=== PATIENT | female | born 1975 | race Caucasian/White ===

== ENCOUNTER 2019-01-29 23:45 | Inpatient (IN) | payer OTHER ==
[2019-01-30] MEDS ORDERED: ACETAMINOPHEN 325 MG TAB PO (02:00)
[2019-01-30] MEDS ORDERED: ONDANSETRON 4 MG INJ IV (02:00)
[2019-01-30] MEDS ORDERED: DEXTROSE 50% 50 ML SYRINGE IV ×2 (03:00)
[2019-01-30] MEDS ORDERED: GLUCOSE GEL 15 GRAM TUBE BUCCAL (03:00)
[2019-01-30] MEDS ORDERED: GLUCOSE GEL 15 GRAM TUBE PO ×2 (03:00)
[2019-01-30] MEDS ORDERED: GLUCAGON 1 MG INJ IM (03:00)
[2019-01-30] MEDS: ACCU-CHEK XX (03:30)
[2019-01-30 03:44] LABS: ANION GAP 7 (5-13); BLOOD UREA NITROGEN 12 mg/dl (7-20); CALCIUM 8.9 mg/dl (8.4-10.2); CARBON DIOXIDE 25 mmol/L (21-31); CHLORIDE 107 mmol/L (97-110); CREATININE 0.47 mg/dl (0.44-1.00); Estimated GFR > 60 mL/min (>60); GLUCOSE 161 mg/dl (70-220); POTASSIUM 4.1 mmol/L (3.5-5.1); SODIUM 139 mmol/L (135-144)
[2019-01-30 03:55] LABS: TROPONIN-I < 0.012 ng/ml (0.000-0.120)
[2019-01-30 05:52] LABS: ADD MAN DIFF? NO
[2019-01-30] MEDS: PANTOPRAZOLE (EC) 40 MG TAB PO (05:52)
[2019-01-30 05:55] LABS: WHITE BLOOD COUNT 8.7 10^3/ul (4.8-10.8)
[2019-01-30 05:55] LABS: BASOPHILS % 0.5 % (0.0-2.0); HEMATOCRIT 39.9 % (37.0-47.0); HEMOGLOBIN 13.1 g/dl (12.0-16.0); LYMPHOCYTES # 2.9 10^3/ul (0.8-2.9); LYMPHOCYTES % 33.5 % (15.0-51.0); MEAN CORPUSCULAR HEMOGLOBIN 28.5 pg (29.0-33.0); MEAN CORPUSCULAR HGB CONC 32.8 g/dl (32.0-37.0); MEAN CORPUSCULAR VOLUME 86.9 fl (82.0-101.0); MEAN PLATELET VOLUME 9.7 fl (7.4-10.4); MONOCYTE # 0.6 10^3/ul (0.3-0.9); MONOCYTES % 6.5 % (0.0-11.0); NEUTROPHIL # 5.1 10^3/ul (1.6-7.5); NEUTROPHILS % 59.2 % (39.0-77.0); PLATELET COUNT 275 10^3/UL (140-415); RED BLOOD COUNT 4.59 10^6/ul (4.20-5.40); RED CELL DISTRIBUTION WIDTH 13.1 % (11.5-14.5)
[2019-01-30] MEDS: CHOLECALCIFEROL 1,000 UNIT TAB PO (08:14)
[2019-01-30] MEDS: BENAZEPRIL 40 MG TAB PO (08:14)
[2019-01-30] MEDS: ASPIRIN 81 MG TAB PO (08:14)
[2019-01-30] MEDS: INSULIN ASPART [NOVOLOG] 3 ML PEN SC ×4 (08:41→21:00)
[2019-01-30 10:36] LABS: TROPONIN-I < 0.012 ng/ml (0.000-0.120)
[2019-01-30] MEDS ORDERED: NITROGLYCERIN (SL) 0.4 MG TAB SL (14:30)
[2019-01-30 15:33] LABS: D-DIMER 461.39 ng/ml (<460)
[2019-01-30 15:45] LABS: TROPONIN-I < 0.012 ng/ml (0.000-0.120)
[2019-01-30] MEDS: ATORVASTATIN 40 MG TAB PO (22:12)
[2019-01-31] MEDS: ACCU-CHEK XX (02:00)
[2019-01-31] MEDS: PANTOPRAZOLE (EC) 40 MG TAB PO (06:23)
[2019-01-31] MEDS: BENAZEPRIL 40 MG TAB PO (08:17)
[2019-01-31] MEDS: ASPIRIN 81 MG TAB PO (08:17)
[2019-01-31] MEDS: CHOLECALCIFEROL 1,000 UNIT TAB PO (08:17)
[2019-01-31] MEDS: INSULIN ASPART [NOVOLOG] 3 ML PEN SC ×4 (08:21→21:00)
[2019-01-31] MEDS: REGADENOSON 0.4 MG/5 ML SYG (12:07)
[2019-01-31] MEDS: ATORVASTATIN 40 MG TAB PO (21:50)
[2019-02-01] MEDS: ACCU-CHEK XX (02:00)
[2019-02-01] MEDS: PANTOPRAZOLE (EC) 40 MG TAB PO (06:14)
[2019-02-01] MEDS: BENAZEPRIL 40 MG TAB PO (08:13)
[2019-02-01] MEDS: ASPIRIN 81 MG TAB PO (08:13)
[2019-02-01] MEDS: CHOLECALCIFEROL 1,000 UNIT TAB PO (08:13)
[2019-02-01] MEDS: INSULIN ASPART [NOVOLOG] 3 ML PEN SC (08:19)
== END 2019-02-01 09:58 | disposition home or self-care (01) | DRG 880 ==
LOC: 6WM 23:45
DX: F41.9 Anxiety disorder, unspecified (principal); Z68.43 Body mass index [BMI] 50.0-59.9, adult; E66.01 Morbid (severe) obesity due to excess calories; E11.9 Type 2 diabetes mellitus without complications; I10 Essential (primary) hypertension; E78.5 Hyperlipidemia, unspecified; R07.9 Chest pain, unspecified; Z90.49 Acquired absence of other specified parts of digestive tract; Z79.4 Long term (current) use of insulin; Z79.82 Long term (current) use of aspirin
CPT/HCPCS: 78452; 80048; 82962; 84443; 84484; 85025; 85378; 93005; 93017; 93306; 93970